=== PATIENT | male | born 1970 | race Caucasian/White ===

== ENCOUNTER 2016-07-28 14:23 | Emergency (ER) | payer OTHER ==
[~2016-07-28] VITALS: Ht 177.8 cm; Wt 145.2 kg
--- NOTE | 2016-07-28 14:26 | ED CARDIAC/CP/PALPITATIONS ---
History of Present Illness General Chief Complaint: Chest Pain Stated Complaint: CP Source: patient Exam Limitations: no limitations Vital Signs & Intake/Output Vital Signs & Intake/Output Vital Signs Date Time Temp Pulse Resp B/P B/P Pulse O2 O2 Flow FiO2 Mean Ox Delivery Rate 07/28 1501 220/120 07/28 1448 250/126 07/28 1446 97.6 92 20 250/126 07/28 1432 99 20 240/130 98 Room Air Allergies Coded Allergies: No Known Allergies (07/28/16) Reconcile Medications No Known Home Medications Triage Nurses Notes Reviewed? yes Onset: Abrupt Duration: minute(s): (34) Timing: single episode today Quality/Severity: moderate, severe Location: LEFT CHEST Radiation: no radiation Activities at Onset: rest Prior Chest Pain/Card Workup: no prior chest pain Aspirin Today: no aspirin today HPI: 46 year old male with history of HTN non compliant with medications and morbid obesity presents with 45 minutes worth of left chest heaviness, diahphoresis, nausea and fatigue. Symptoms started at rest. No history of similar symptoms before. Denies any radiation of pain to the back or neck. Blood pressure is 240 systolic on arrival. Past History Travel History Traveled to [place] past 21 day No Medical History Any Pertinent Medical History? see below for history Cardiovascular: hypertension Other Medical Hx: MORBID OBESITY Surgical History Surgical History: non-contributory Psychosocial History Tobacco Use: Never used ETOH Use: occasional use Illicit Drug Use: denies illicit drug use Family History Hx Contributory? No Review of Systems Review of Systems Constitutional: Reports: diaphoresis. Denies: chills, fever. EENTM: Reports: no symptoms. Respiratory: Reports: short of breath. Cardiovascular: Reports: chest pain. GI: Denies: abdominal pain. Genitourinary: Reports: no symptoms. Musculoskeletal: Reports: no symptoms. Skin: Reports: no symptoms. Neurological/Psychological: Reports: no symptoms. Hematologic/Endocrine: Denies: bruising, bleeding, polyuria, polydipsia. Immunologic/Allergic: Denies: splenectomy. All Other Systems: Reviewed and Negative Physical Exam Physical Exam General Appearance: well developed/nourished, alert, awake, anxious, moderate distress, obese Head: atraumatic, normal appearance Eyes: Bilateral: normal appearance, PERRL, EOMI. Ears, Nose, Throat: normal pharynx, normal ENT inspection, hearing grossly normal Neck: normal inspection, supple, full range of motion Respiratory: normal breath sounds, chest non-tender, no respiratory distress Cardiovascular: regular rate/rhythm Peripheral Pulses: 2+ radial (R), 2+ radial (L) Back: normal inspection, normal range of motion Extremities: normal inspection, normal capillary refill, normal range of motion, calf tenderness Neurologic/Psych: awake, alert Skin: intact, normal color, warm/dry Core Measures ACS in differential dx? Yes ASA ordered for poss ACS? Yes-ordered Severe Sepsis Present: No Septic Shock Present: No Progress Differential Diagnosis: AMI, aortic dissection, costochondritis, myocarditis, pericarditis, unstable angina Plan of Care: Orders Procedure Date/time Status XRY-PORTABLE CHEST XRAY 07/28 1440 Active Telemetry/Billet Heater Operator 07/28 1439 Active TROPONIN LEVEL 07/28 1439 Active PARTIAL THROMBOPLASTIN TIME 07/28 1439 Active PROTHROMBIN TIME 07/28 1439 Active COMPREHENSIVE METABOLIC PANEL 07/28 1439 Active CBC WITHOUT DIFFERENTIAL 07/28 1439 Active EKG 07/28 1423 Active Current Medications Sig/Harish Start time Last Medication Dose Stop Time Status Admin Ticagrelor 180 MG ONCE ONE 07/28 1500 UNVr 07/28 (Brilinta) 07/28 1501 1452 Laboratory Tests 07/28/16 1445: Sodium Pending, Potassium Pending, Chloride Pending, Carbon Dioxide Pending, Anion Gap Pending, BUN Pending, Creatinine Pending, BUN/Creatinine Ratio Pending , Glucose Pending, Calcium Pending, Total Bilirubin Pending, AST Pending, ALT Pending, Alkaline Phosphatase Pending, Troponin I Pending, Total Protein Pending , Albumin Pending, Globulin Pending, Albumin/Globulin Ratio Pending, PT Pending, INR Pending, APTT Pending, CBC w Diff Pending, WBC Pending, RBC Pending, Hgb Pending, Hct Pending, MCV Pending, MCH Pending, RDW Pending, Plt Count Pending, MPV Pending, PUBS MCHC Pending 2:40 PM D/W DR MOHAN (ASPIRIN, NITRO, LABETALOL ORDERED) 3:06 PM PATIENT TRANSFERRED TO [facility] FIELD OBSERVER - DR SULLIVAN ACCEPTING (JANIS HOWELL,EVARISTO) Diagnostic Imaging: Viewed by Me: Radiology Read. Discussed w/RAD: Radiology Read. Initial ED EKG: NSR, LVH, 1, AVL ST DEPRESSION, T WAVE INVERSION ST ELEVATION V1 , V2 Comments: PATIENT: ELIF DEVLIN PRESENT AGE: 46 PATIENT ACCOUNT NO: [id number] : 70 LOCATION: [facility] ORDERING PHYSICIAN: EVARISTO BRUCE MD SERVICE DATE: 07/28/16-1440 EXAM TYPE: RAD - XRY-PORTABLE CHEST XRAY EXAMINATION: XR PORTABLE CHEST CLINICAL INFORMATION: Chest pain, hypertension COMPARISON: None TECHNIQUE: Portable AP view of the chest was obtained. FINDINGS: Cardiac silhouette appears enlarged, possibly accentuated by the AP technique. Lungs and pleural spaces are clear. Normal pulmonary vascularity. No acute osseous abnormality. No widening of the superior mediastinum seen. IMPRESSION: Prominent cardiac silhouette could reflect cardiomegaly or pericardial effusion, or simply be accentuated by AP technique. No widening of the superior mediastinum seen. Consider contrast-enhanced chest CTA if there is further clinical concern for dissection. DICTATED BY: FILIBERTO RAY MD DATE/TIME DICTATED:07/28/161514 ICEBOX MAN:ALISA DATE/TIME TRANSCRIBED:07/28/161514 CONFIDENTIAL, DO NOT COPY WITHOUT APPROPRIATE AUTHORIZATION. <Electronically signed in Other Vendor System> SIGNED BY: FILIBERTO RAY MD 1520 Departure Departure Time of Disposition: 1505 Disposition: OTHER [facility] (ACUTE) Condition: Stable Clinical Impression Primary Impression: Unstable angina Referrals: YOUSIF NERI MD Departure Forms: Customer Survey General Discharge Information Prescriptions: Current Visit Scripts No Known Home Medications Critical Care Note Critical Care Note Critical Care Time: 30-74 min ED Attending Observation Initial Observation Note: I have seen and personally examined ELIF DEVLIN on 07/28/16 at 1444. I agree with the current emergency department documentation. The disposition (admission or discharge) is uncertain at this time, he needs a period of observation for the following reason(s): The ED Nurse caring for this patient has been personally informed as to what the patient is being observed for.
[2016-07-28 15:01] VITALS: BP 220/120
[2016-07-28 15:05] LABS: ABSOLUTE BASOPHIL COUNT 0 /CUMM (0.0-0.2); ABSOLUTE EOSINOPHIL COUNT 0.1 /CUMM (0.0-0.7); ABSOLUTE LYMPH COUNT 2.5 /CUMM (1.2-3.4); ABSOLUTE MONOCYTE COUNT 0.5 /CUMM (0.10-0.60); BASOPHIL % 0.4 % (0.0-2.0); EOSINOPHIL % 1.4 % (0-5); GRANULOCYTE % 56.1 % (42.2-75.2); HEMATOCRIT 43.7 % (42-52); MEAN CORPUSCULAR HGB 30.8 PG (27.0-31.0); MEAN CORPUSCULAR HGB CONC 35.2 G/DL (33.0-37.0); MEAN CORPUSCULAR VOLUME 87.5 FL (80.0-94.0); MEAN PLATELET VOLUME 7.9 FL (7.4-10.4); PLATELET COUNT 177 /CUMM (130-400); RBC DISTRIBUTION WIDTH 14.2 % (11.5-14.5); RED BLOOD CELL CT 4.99 /CUMM (4.70-6.10); WHITE BLOOD CELL COUNT 7.1 /CUMM (4.8-10.8)
[2016-07-28 15:06] LABS: PT 10.8 SEC (9.4-12.5); PTT 31 SEC (25-37)
--- NOTE | 2016-07-28 15:20 | RADIOLOGY REPORT ---
EXAMINATION: XR PORTABLE CHEST CLINICAL INFORMATION: Chest pain, hypertension COMPARISON: None TECHNIQUE: Portable AP view of the chest was obtained. FINDINGS: Cardiac silhouette appears enlarged, possibly accentuated by the AP technique. Lungs and pleural spaces are clear. Normal pulmonary vascularity. No acute osseous abnormality. No widening of the superior mediastinum seen. IMPRESSION: Prominent cardiac silhouette could reflect cardiomegaly or pericardial effusion, or simply be accentuated by AP technique. No widening of the superior mediastinum seen. Consider contrast-enhanced chest CTA if there is further clinical concern for dissection.
== END 2016-07-28 15:30 | disposition short-term general hospital (02) ==
LOC: ERH 14:23
PROVIDERS: Emergency Medicine
DX: I20.0 Unstable angina (principal); R07.89 Other chest pain
CPT/HCPCS: 93005; 93010; 96374; 99291; J3490

== ENCOUNTER 2017-07-11 07:55 | Emergency (ER) | payer OTHER ==
[~2017-07-11] VITALS: Ht 177.8 cm; Wt 127.0 kg
[2017-07-11 08:00] VITALS: BP 173/90
--- NOTE | 2017-07-11 08:00 | ED UPPER/LOWER EXTREMITY COMPL ---
History of Present Illness General Chief Complaint: Hand or Wrist Injury Stated Complaint: LEFT WRIST INJURY Source: patient Exam Limitations: no limitations Vital Signs & Intake/Output Vital Signs & Intake/Output Vital Signs Date Time Temp Pulse Resp B/P B/P Pulse O2 O2 Flow FiO2 Mean Ox Delivery Rate 07/11 0800 97.0 78 18 173/90 99 Allergies Coded Allergies: No Known Allergies (07/28/16) Reconcile Medications Amlodipine Besylate 10 MG TABLET 1 TAB PO DAILY HEART (Reported) Hydrochlorothiazide 25 MG TABLET 1 TAB PO DAILY WATER RETENTION (Reported) Labetalol HCl 300 MG TABLET 2 TAB PO BID HEART (Reported) Triage Nurses Notes Reviewed? yes Onset: Gradual Duration: intermittent Timing: recent history Severity Numbers: 7 HPI: Patient is a 47-year-old male with a past medical history of hypertension who presents emergency room with concerns that 3 weeks ago patient was bowling she has left arm dominant which she does not do very often where he states the following day he noticed left wrist pain that improved her on that week with ibuprofen and rest. Patient states that on Sunday 3 days ago he was throwing darts in the following day Sunday he again had pain that has remained persistent and patient also noted yesterday or rotating his wrist a popping audible sensation. Patient has been taking ibuprofen with mild relief of symptoms. Patient denies any elbow or shoulder pain denies any extremity paresthesia weakness or swelling denies any fever chills. Past History Travel History Traveled to [place] past 21 day No Medical History Any Pertinent Medical History? 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 No Review of Systems Review of Systems Constitutional: Reports: no symptoms. EENTM: Reports: no symptoms. Respiratory: Reports: no symptoms. Cardiovascular: Reports: no symptoms. Gastrointestinal/Abdominal: Reports: no symptoms. Genitourinary: Reports: no symptoms. Musculoskeletal: Reports: see HPI, joint pain, joint swelling. Skin: Reports: no symptoms. Neurological/Psychological: Reports: no symptoms. Hematologic/Endocrine: Reports: no symptoms. Immunological: Reports: no symptoms. All Other Systems: Reviewed and Negative Physical Exam Physical Exam General Appearance: no apparent distress, alert, comfortable Head: atraumatic Eyes: Bilateral: normal appearance. Ears, Nose, Throat: hearing grossly normal Neck: normal inspection Cardiovascular/Respiratory: no respiratory distress Peripheral Pulses: 2+ radial (L) Neurologic/Tendon: normal sensation, normal motor functions, normal tendon functions Skin: intact, normal color, warm/dry Comments: Left elbow normal inspection nontender full active range of motion Left wrist noted swelling point tenderness decreased active range of motion +4/5 resisted range of motion noted with movement and motor winder strength. Radial pulse +2 dermatomes intact capillary refill less than 2 seconds Progress Differential Diagnosis: arterial insufficiency, compartment syndrome, contusion, dislocation, DVT, fracture, gout, septic arthritis, sprain, tendon injury Plan of Care: Orders Procedure Date/time Status Durable Medical Equipment 07/11 838 Active Patient's left upper extremity was neurovascularly intact on exam. X-rays will be obtained Patient has no scaphoid tenderness on exam x-rays were unremarkable for fractures, discussed x-ray results with patient left thumb spica splint was applied to the wrist, pre-and post-neurovascular was intact, Diagnostic Imaging: Viewed by Me: Radiology Read. Radiology Impression: no fracture Comments: PATIENT: ELIF DEVLIN PRESENT AGE: 47 PATIENT ACCOUNT NO: [id number] : 70 LOCATION: [facility] ORDERING PHYSICIAN: Howard WISEMAN SERVICE DATE: 07/11/17 EXAM TYPE: RAD - XRY-WRIST COMPLETE-LEFT EXAMINATION: XR WRIST, LEFT CLINICAL INFORMATION: Left wrist pain COMPARISON: None TECHNIQUE: PA, lateral, and oblique views of the left wrist. FINDINGS: Distal radioulnar joint. There is marginal osteophytes indicative of mild to moderate arthrosis The remaining bone joints and soft tissues are unremarkable. IMPRESSION: Osteoarthritis of the distal radioulnar joint. DICTATED BY: Mika Chandler MD DATE/TIME DICTATED:07/11/17843 SHOCHET:ALISA Departure Departure Disposition: HOME OR SELF CARE Condition: Stable Clinical Impression Primary Impression: Left wrist pain Secondary Impressions: Arthritis Referrals: Janet HOWELL,Xu (PCP/Family) Christiano White MD Additional Instructions: As discussed begin icing the area directly 20 minutes every 2 hours, begin the prescription meloxicam for pain and inflammation, prescriptions waiting at [facility], begin using the wrist splint until you can move THE wrist and hand without pain and YOUR ARE SYMPTOM FREE. if no better on Sunday follow-up with your primary care doctor or orthopedic Dr. White for further evaluation treatment, if symptoms worsen return to emergency room Departure Forms: Customer Survey General Discharge Information Prescriptions: Current Visit Scripts Meloxicam (Mobic) 1 TAB PO DAILY PRN PAIN #14 TAB
[2017-07-11] MEDS ORDERED: AMLODIPINE BESY10 M1 PO (08:16)
[2017-07-11] MEDS ORDERED: HYDROCHLOROTHIA25 M1 PO (08:16)
[2017-07-11] MEDS ORDERED: LABETALOL HCL300 M1 PO (08:17)
--- NOTE | 2017-07-11 08:49 | RADIOLOGY REPORT ---
EXAMINATION: XR WRIST, LEFT CLINICAL INFORMATION: Left wrist pain COMPARISON: None TECHNIQUE: PA, lateral, and oblique views of the left wrist. FINDINGS: Distal radioulnar joint. There is marginal osteophytes indicative of mild to moderate arthrosis The remaining bone joints and soft tissues are unremarkable. IMPRESSION: Osteoarthritis of the distal radioulnar joint.
[2017-07-11] MEDS ORDERED: MOBIC15 M1 PO (08:54)
== END 2017-07-11 09:04 ==
LOC: ERH 07:55
DX: M19.032 Primary osteoarthritis, left wrist (principal)
CPT/HCPCS: 73110-LT